=== PATIENT | female | born 1995 | race Caucasian/White ===

== ENCOUNTER 2016-08-24 20:56 | Emergency (ER) | payer OTHER ==
[~2016-08-24] VITALS: Ht 154.9 cm; Wt 58.5 kg
[2016-08-24 21:03] VITALS: BP 109/60
--- NOTE | 2016-08-24 22:37 | NUR ---
PATIENT PRESENTS TO ED WITH URINARY BURNING X 1 NIGHT . PT STATES DENIES N/V/D; SKIN IS PINK/WARM/DRY; AAOX4 WITH EVEN AND STEADY GAIT; LUNGS CLEAR BL; HR EVEN AND REGULAR; PT DENIES ANY FEVER, CP, SOB, OR COUGH AT THIS TIME; PATIENT STATES PAIN OF 7/10 AT THIS TIME; VSS; PATIENT POSITIONED FOR COMFORT; HOB ELEVATED; BEDRAILS UP X2; BED DOWN. ER MD MADE AWARE OF PT STATUS.
--- NOTE | 2016-08-24 22:37 | NUR ---
PT TAKEN TO BED 5
--- NOTE | 2016-08-24 22:54 | NUR ---
Dr. Zayas evaluating patient at bedside.
[2016-08-24] MEDS ORDERED: PHENAZOPYRIDINE 100 MG TAB PO ONE (23:10)
[2016-08-24] MEDS ORDERED: SULFAMETH/TRIMETH DS 800/160MG 1 TAB PO ONE (23:10)
[2016-08-24 23:45] VITALS: BP 112/71
--- NOTE | 2016-08-24 23:45 | NUR ---
Patient discharged with v/s stable. Written and verbal after care instructions given and explained. Patient alert, oriented and verbalized understanding of instructions. Ambulatory with steady gait. All questions addressed prior to discharge. ID band removed. Patient advised to follow up with PMD. Rx of PYRIDIUM 100MG AND MACROBID 100MG given. Patient educated on indication of medication including possible reaction and side effects. Opportunity to ask questions provided and answered.
== END 2016-08-24 23:45 | disposition home or self-care (01) ==
LOC: MED 20:56
DX: N39.0 Urinary tract infection, site not specified (principal); Z88.0 Allergy status to penicillin
CPT/HCPCS: 81002; 81025; 99283

== ENCOUNTER 2016-10-14 12:49 | Emergency (ER) | payer OTHER ==
[~2016-10-14] VITALS: Ht 154.9 cm; Wt 59.9 kg
[2016-10-14 13:07] VITALS: BP 111/55
--- NOTE | 2016-10-14 14:33 | NUR ---
Patient to bed 07.
--- NOTE | 2016-10-14 14:34 | NUR ---
Dr. Ngo evaluating patient at bedside.
--- NOTE | 2016-10-14 14:35 | NUR ---
PATIENT PRESENTS TO ED WITH C/O DYSURIA, BODYACHES, FREQUENCY, URGENCY X 2 DAYS;HX---FREQUENT UTI'S.DENIES N/V/D; SKIN IS PINK/WARM/DRY; AAOX4 WITH EVEN AND STEADY GAIT; LUNGS CLEAR BL; HR EVEN AND REGULAR; PT DENIES ANY FEVER, CP, SOB, OR COUGH AT THIS TIME; PATIENT STATES PAIN OF 8/10 AT THIS TIME; VSS; PATIENT POSITIONED FOR COMFORT; HOB ELEVATED; BEDRAILS UP X2; BED DOWN.
[2016-10-14 14:45] VITALS: BP 116/60
--- NOTE | 2016-10-14 14:45 | NUR ---
Patient discharged with v/s stable. Written and verbal after care instructions given and explained. Patient alert, oriented and verbalized understanding of instructions. Ambulatory with steady gait. All questions addressed prior to discharge. ID band removed. Patient advised to follow up with PMD. Rx of BACTRIM AND PYRIDIUM given. Patient educated on indication of medication including possible reaction and side effects. Opportunity to ask questions provided and answered.ENCOURAGED FLUID INTAKE.
--- NOTE | 2016-10-14 14:50 | NUR ---
Note undone in EDM - 10/14/16 at 1451 by MEDEZRA PATIENT PRESENTS TO ED WITH C/O DYSURIA, BODYACHES, FREQUENCY, URGENCY X 2 DAYS;HX---FREQUENT UTI'S.DENIES N/V/D; SKIN IS PINK/WARM/DRY; AAOX4 WITH EVEN AND STEADY GAIT; LUNGS CLEAR BL; HR EVEN AND REGULAR; PT DENIES ANY FEVER, CP, SOB, OR COUGH AT THIS TIME; PATIENT STATES PAIN OF 8/10 AT THIS TIME; VSS; PATIENT POSITIONED FOR COMFORT; HOB ELEVATED; BEDRAILS UP X2; BED DOWN.
== END 2016-10-14 14:45 | disposition home or self-care (01) ==
LOC: MED 12:49
DX: N39.0 Urinary tract infection, site not specified (principal); Z88.0 Allergy status to penicillin

== ENCOUNTER 2017-02-06 00:42 | Emergency (ER) | payer OTHER ==
[~2017-02-06] VITALS: Ht 154.9 cm; Wt 59.0 kg
[2017-02-06 00:44] VITALS: BP 101/68
--- NOTE | 2017-02-06 00:52 | NUR ---
PT TAKEN TO BED 6
--- NOTE | 2017-02-06 00:54 | NUR ---
PT MOVED TO BED 7
--- NOTE | 2017-02-06 01:07 | NUR ---
21/F c/o vaginal bleeding since 01/26/17. Pt states she has irregular menstrual cycles. Pt states "It never last more than 4 days and Saturday will be two weeks." Pt c/o sharp pain to lower abdomen, intermittent, 09/26. Denies N/V/D. Denies fever or chills. Pt also reports feeling tired and weak. Pt states "Right now I'm just spotting." Hx overactive bladder, UTI. AXO4. Pt in a gown, placed in position of comfort. Warm blanket provided. VSS.
--- NOTE | 2017-02-06 01:23 | NUR ---
Lab at bedside for blood draw.
[2017-02-06 01:33] LABS: BASOPHILS # (AUTO) 0.3 K/uL (0.00-0.22); BASOPHILS % (AUTO) 3.9 % (0.0-2.0); EOSINOPHILS # (AUTO) 0.1 K/uL (0-0.4); EOSINOPHILS % (AUTO) 1.8 % (0.0-4.0); HEMATOCRIT 37.5 % (36-48); HEMOGLOBIN 12.4 g/dL (12.0-16.0); LYMPHOCYTES # (AUTO) 2.4 K/uL (2.5-16.5); LYMPHOCYTES % (AUTO) 30.1 % (20.5-51.1); MEAN CORPUSCULAR HEMOGLOBIN 30 pg (27-31); MEAN CORPUSCULAR HGB CONC 33 g/dL (33-37); MEAN CORPUSCULAR VOLUME 91 fL (80-94); MONOCYTES # (AUTO) 0.5 K/uL (0.8-1.0); MONOCYTES % (AUTO) 5.8 % (1.7-9.3); NEUTROPHILS # (AUTO) 4.5 K/uL (1.8-7.7); NEUTROPHILS % (AUTO) 58.4 % (42.2-75.2); PLATELET COUNT (AUTO) 317 K/uL (140-450); RED BLOOD CELL COUNT(AUTO) 4.11 MIL/uL (4.20-5.40); RED CELL DISTRIBUTION WIDTH 11.8 % (11.6-13.7); WHITE BLOOD COUNT (AUTO) 7.8 K/uL (4.8-10.8)
[2017-02-06 01:49] LABS: APPEARANCE,URINE SL CLOUDY (CLEAR); BILIRUBIN,URINE NEGATIVE (NEGATIVE); BLOOD, URINE 3+ (NEGATIVE); COLOR,URINE YELLOW (YELLOW); LEUKOCYTE ESTERASE ,URINE TRACE (NEGATIVE); NITRITE, URINE NEGATIVE (NEGATIVE); PH,URINE 6.5 (5.0-9.0); UGLUCOSE NEGATIVE (NEGATIVE)
[2017-02-06 01:54] LABS: PROTHROMBIN TIME 10.4 secs (10.8-13.4)
[2017-02-06 01:58] LABS: THYROID STIMULATING HORMONE 4.24 uIU/mL (0.34-3.74)
[2017-02-06 02:01] LABS: RBC,URINE 3-10 (FEW) /HPF (0-5)
--- NOTE | 2017-02-06 02:35 | NUR ---
Patient discharged with v/s stable. Written and verbal after care instructions given and explained. Patient verbalized understanding. Ambulatory with steady gait. All questions addressed prior to discharge. Advised to follow up with PMD.
[2017-02-06 02:40] VITALS: BP 101/68
== END 2017-02-06 00:52 | disposition home or self-care (01) ==
LOC: MED 00:42
DX: N93.8 Other specified abnormal uterine and vaginal bleeding (principal); Z88.0 Allergy status to penicillin
CPT/HCPCS: 36415; 81001; 81025; 84439; 84443; 84703; 85025; 85610; 85730; 86900; 86901; 87086; 99284

== ENCOUNTER 2017-12-25 11:17 | Emergency (ER) | payer OTHER ==
[~2017-12-25] VITALS: Ht 154.9 cm; Wt 59.4 kg
[2017-12-25 11:22] VITALS: BP 110/69
--- NOTE | 2017-12-25 11:30 | NUR ---
[place] TO BED 5
--- NOTE | 2017-12-25 11:32 | NUR ---
22/F BIB SELF C/O N/D, CRAMPING LOWER ABD PAIN SINCE X 3 DAYS. STATES "EVERYTHING I EAT UPSETS MY STOMACH. PT STATED HX: HYPOTHYROID. SKIN IS PINK/WARM/DRY; AAOX4 WITH EVEN AND STEADY GAIT; LUNGS CLEAR BL; HR EVEN AND REGULAR; PT DENIES ANY FEVER, CP, SOB, OR COUGH AT THIS TIME; PATIENT STATES PAIN OF 6/10 AT THIS TIME; VSS; PATIENT POSITIONED FOR COMFORT; HOB ELEVATED; BEDRAILS UP X2; BED DOWN. ER MD MADE AWARE OF PT STATUS.
[2017-12-25] MEDS ORDERED: NACL 0.9% 1,000 ML IV ONE (12:33)
[2017-12-25] MEDS ORDERED: NACL 0.9% 1,000 ML IV SCH (12:33)
[2017-12-25] MEDS ORDERED: ONDANSETRON 4 MG/2 ML VIAL IVP ONE (12:35)
[2017-12-25] MEDS ORDERED: KETOROLAC 30 MG/ML VIAL IVP ONE (12:35)
[2017-12-25 13:24] LABS: BASOPHILS # (AUTO) 0.1 K/uL (0.00-0.22); BASOPHILS % (AUTO) 0.9 % (0.0-2.0); EOSINOPHILS % (AUTO) 0.6 % (0.0-4.0); HEMATOCRIT 38.7 % (36-48); HEMOGLOBIN 13.2 g/dL (12.0-16.0); LYMPHOCYTES # (AUTO) 1.9 K/uL (2.5-16.5); LYMPHOCYTES % (AUTO) 31.8 % (20.5-51.1); MEAN CORPUSCULAR HEMOGLOBIN 32 pg (27-31); MEAN CORPUSCULAR HGB CONC 34 g/dL (33-37); MEAN CORPUSCULAR VOLUME 92.4 fL (80-94); MONOCYTES # (AUTO) 0.3 K/uL (0.8-1.0); MONOCYTES % (AUTO) 5.6 % (1.7-9.3); NEUTROPHILS # (AUTO) 3.6 K/uL (1.8-7.7); NEUTROPHILS % (AUTO) 61.1 % (42.2-75.2); PLATELET COUNT (AUTO) 293 K/uL (140-450); RED BLOOD CELL COUNT(AUTO) 4.19 MIL/uL (4.20-5.40); RED CELL DISTRIBUTION WIDTH 13.1 % (11.6-13.7)
[2017-12-25 14:29] LABS: ALBUMIN 3.9 g/dL (3.4-5.0); ANION GAP 12.2 (8-16); CARBON DIOXIDE 28.7 mmol/L (21-32); CREATININE 0.6 mg/dL (0.6-1.3); POTASSIUM 3.9 mmol/L (3.5-5.1); TOTAL BILIRUBIN 0.6 mg/dL (0.0-1.0)
[2017-12-25 14:49] LABS: APPEARANCE,URINE CLEAR (CLEAR); BILIRUBIN,URINE NEGATIVE (NEGATIVE); BLOOD, URINE NEGATIVE (NEGATIVE); COLOR,URINE YELLOW (YELLOW); LEUKOCYTE ESTERASE ,URINE NEGATIVE (NEGATIVE); NITRITE, URINE NEGATIVE (NEGATIVE); UGLUCOSE NEGATIVE (NEGATIVE)
[2017-12-25 15:57] VITALS: BP 101/65
--- NOTE | 2017-12-25 15:57 | NUR ---
Patient discharged with v/s stable. Written and verbal after care instructions given and explained. Patient alert, oriented and verbalized understanding of instructions. Ambulatory with steady gait. All questions addressed prior to discharge. ID band removed. Patient advised to follow up with PMD. Rx of ZOFRAN,LOMOTIL&prilosec given. Patient educated on indication of medication including possible reaction and side effects. Opportunity to ask questions provided and answered.
== END 2017-12-25 15:57 | disposition home or self-care (01) ==
LOC: MED 11:17
DX: K29.70 Gastritis, unspecified, without bleeding (principal); E03.9 Hypothyroidism, unspecified; Z88.0 Allergy status to penicillin
CPT/HCPCS: 36415; 74176; 76830; 76856; 80053; 81003; 81025; 82150; 83690; 84703; 85025; 96361; 96374; 96375; 99285; J1885; J2405; J7030; Q0092

== ENCOUNTER 2020-11-30 20:15 | Emergency (ER) | payer OTHER ==
[~2020-11-30] VITALS: Ht 157.5 cm; Wt 58.5 kg
[2020-11-30 20:27] VITALS: BP 133/69
[2020-11-30 21:48] LABS: BASOPHILS # (AUTO) 0.2 K/uL (0.00-0.22); BASOPHILS % (AUTO) 2.4 % (0.0-2.0); EOSINOPHILS # (AUTO) 0.2 K/uL (0-0.4); EOSINOPHILS % (AUTO) 2.4 % (0.0-4.0); HEMATOCRIT 35.8 % (36-48); HEMOGLOBIN 12.1 g/dL (12.0-16.0); LYMPHOCYTES % (AUTO) 29.4 % (20.5-51.1); MEAN CORPUSCULAR HEMOGLOBIN 33 pg (27-31); MEAN CORPUSCULAR HGB CONC 34 g/dL (33-37); MEAN CORPUSCULAR VOLUME 98.6 fL (80-94); MONOCYTES # (AUTO) 0.4 K/uL (0.8-1.0); MONOCYTES % (AUTO) 5.5 % (1.7-9.3); NEUTROPHILS # (AUTO) 4.2 K/uL (1.8-7.7); NEUTROPHILS % (AUTO) 60.3 % (42.2-75.2); PLATELET COUNT (AUTO) 306 K/uL (140-450); RED BLOOD CELL COUNT(AUTO) 3.63 MIL/uL (4.20-5.40); WHITE BLOOD COUNT (AUTO) 6.9 K/uL (4.8-10.8)
[2020-11-30 21:57] LABS: APPEARANCE,URINE HAZY (CLEAR); BILIRUBIN,URINE NEGATIVE (NEGATIVE); BLOOD, URINE NEGATIVE (NEGATIVE); COLOR,URINE STRAW (YELLOW); LEUKOCYTE ESTERASE ,URINE TRACE (NEGATIVE); NITRITE, URINE NEGATIVE (NEGATIVE); PH,URINE 6.5 (5.0-9.0); UGLUCOSE NEGATIVE (NEGATIVE)
--- NOTE | 2020-11-30 22:02 | NUR ---
PT RETURN FROM CT TO ER LOBBY
[2020-11-30 22:04] LABS: ANION GAP 10.8 (8-16); CARBON DIOXIDE 27.9 mmol/L (21-32); CREATININE 0.7 mg/dL (0.6-1.3); POTASSIUM 3.7 mmol/L (3.5-5.1); TOTAL BILIRUBIN 0.4 mg/dL (0.0-1.0)
[2020-11-30 22:11] LABS: RBC,URINE NONE SEEN /HPF (0-5); WBC,URINE 0-5 /HPF (0-5)
--- NOTE | 2020-11-30 22:46 | NUR ---
PT TAKEN TO BED 11
--- NOTE | 2020-11-30 22:50 | NUR ---
PT BIB SELF FOR C/O LLQ ABDOMINAL PAIN X 2 WEEKS. PT REPORTS SHE HAD A PAPSMEAR THAT CAME BACK ABNORMAL ON 11/12, SHE IS TO BE SEEN FOR A BIOPSY OF HER CERVIX, HOWEVER DOES NOT HAVE A DX. PT REPORTS PAIN INCREASES AT NIGHT WHEN LYING DOWN. STATES "I FEEL VERY BLOATED." PT REPORTS PAIN /10, RELIEF WITH ADVIL. REPORTS LAST BM 11/28/20. DENIES N/V/D, FEVER, CHILLS, SOB, CP. MED HX: HYPOTHYROID (NOT TAKING MEDS CURRENTLY) ALLERGIES: PENICILLINS
--- NOTE | 2020-11-30 23:01 | NUR ---
ERMD AT BEDSIDE.
[2020-11-30] MEDS ORDERED: DICYCLOMINE 10 MG CAP PO ONE (23:10)
[2020-11-30] MEDS ORDERED: ALUMINUM HYD/MAG/SIMETHICONE 30 ML UDC PO ONE (23:10)
[2020-12-01] MEDS ORDERED: MAG355OR2 PO (00:11)
[2020-12-01 00:35] VITALS: BP 104/65
--- NOTE | 2020-12-01 00:35 | NUR ---
Patient discharged with v/s stable. Written and verbal after care instructions given and explained. Patient alert, oriented and verbalized understanding of instructions. Ambulatory with steady gait. All questions addressed prior to discharge. ID band removed. Patient advised to follow up with PMD. Rx of MAALOX MAXIMUM STRENGTH SUSP. given. Patient educated on indication of medication including possible reaction and side effects. Opportunity to ask questions provided and answered.
[2020-12-01] MEDS ORDERED: DIPH25TA53 PO (20:09)
[2020-12-01] MEDS ORDERED: EPIN1KIT31 IM (20:09)
== END 2020-12-01 00:35 | disposition home or self-care (01) ==
LOC: MED 20:15
DX: N83.292 Other ovarian cyst, left side (principal); R14.0 Abdominal distension (gaseous); E07.9 Disorder of thyroid, unspecified; Z88.0 Allergy status to penicillin
CPT/HCPCS: 36415; 80053; 81001; 81025; 83690; 85025; 99284

== ENCOUNTER 2020-12-01 19:15 | Emergency (ER) | payer OTHER ==
[~2020-12-01] VITALS: Ht 152.4 cm; Wt 58.5 kg
[~2020-12-01 19:15] MED LIST: MAG355OR2 PO
[2020-12-01 19:25] VITALS: BP 102/65
--- NOTE | 2020-12-01 19:29 | NUR ---
PT TAKEN TO BED 8
--- NOTE | 2020-12-01 19:32 | NUR ---
PATIENT BIB SELF FOR C/O ALLERGIC REACTION TO INJECTION GIVEN FOR TX OF STD. PER PATIENT REALIZED PCN WAS PART OF MEDICATION. PATIENT NOTED WITH REDNESS ON BILATERAL UE, RIGHT LE AND CHEST AND FACE. PATIENT DENIES ANY SOB BUT DOES COMPLAIN OF ITCHINESS. AAOX4. DENIES PMH ALLERGIES: PENICILLINS
[2020-12-01] MEDS ORDERED: diphenhydrAMINE 50 MG/ML VIAL IM ONE (20:05)
[2020-12-01] MEDS ORDERED: DIPH25TA53 PO (20:09)
[2020-12-01] MEDS ORDERED: EPIN1KIT31 IM (20:09)
[2020-12-01 20:26] VITALS: BP 113/70
--- NOTE | 2020-12-01 20:26 | NUR ---
Patient discharged with v/s stable. Written and verbal after care instructions given and explained. Patient alert, oriented and verbalized understanding of instructions. Ambulatory with steady gait. All questions addressed prior to discharge. ID band removed. Patient advised to follow up with PMD. Rx of BENADRYL AND EPIPEN given. PATIENT GIVEN EXCUSED FORM. Patient educated on indication of medication including possible reaction and side effects. Opportunity to ask questions provided and answered.
== END 2020-12-01 20:26 | disposition home or self-care (01) ==
LOC: MED 19:15
DX: L50.0 Allergic urticaria (principal); Z88.0 Allergy status to penicillin
CPT/HCPCS: 96372; 99283; J1200